=== PATIENT | male | born 1990 | race Caucasian/White ===

== ENCOUNTER 2019-11-07 21:13 | Emergency (ER) | payer MEDICAID ==
[~2019-11-07] VITALS: Ht 182.9 cm; Wt 117.5 kg
[~2019-11-07 21:13] MED LIST: HUMALOG100 U/ML SC; IBUPROFEN400 MG PO
[2019-11-07 21:18] VITALS: Ht 182.9 cm; Wt 117.5 kg
[2019-11-07 21:36] VITALS: BP 135/81
== END 2019-11-07 21:36 | disposition home or self-care (01) ==
LOC: ED 21:13
DX: E10.9 Type 1 diabetes mellitus without complications (principal); Z76.0 Encounter for issue of repeat prescription

== ENCOUNTER 2019-11-26 18:07 | Emergency (ER) | payer MEDICAID ==
[~2019-11-26] VITALS: Ht 185.4 cm; Wt 87.5 kg
[2019-11-26 18:43] VITALS: BP 135/72; Ht 185.4 cm; Wt 87.5 kg
== END 2019-11-26 19:15 | disposition home or self-care (01) ==
LOC: ED 18:07 → EDBD 18:07 → ED 19:15
DX: E11.9 Type 2 diabetes mellitus without complications (principal); Z76.0 Encounter for issue of repeat prescription